=== PATIENT | male | born 1950 | race Caucasian/White ===

== ENCOUNTER 2022-07-31 14:53 | Emergency (ER) | payer MEDICARE, OTHER ==
[~2022-07-31] VITALS: Ht 172.7 cm; Wt 79.5 kg
[2022-07-31 14:58] VITALS: TEMP 97.8
[2022-07-31] MEDS ORDERED: DOCU-350 PO (15:09)
[2022-07-31] MEDS ORDERED: SENN-376 PO (15:09)
[2022-07-31] MEDS ORDERED: ROSU10TA72 PO (15:09)
[2022-07-31] MEDS ORDERED: BUME1TAB34 PO (15:09)
[2022-07-31] MEDS ORDERED: ASPI-1450 PO (15:09)
[2022-07-31] MEDS ORDERED: LOSA-382 PO (15:09)
[2022-07-31] MEDS ORDERED: FOLI0.8T53 PO (15:09)
[2022-07-31] MEDS ORDERED: SEVE0.8P6 PO (15:09)
[2022-07-31 16:38] VITALS: BP 128/62; PULSE 72; RESP 16
== END 2022-07-31 17:00 | disposition home or self-care (01) ==
LOC: EMS 14:56
DX: S09.90XA Unspecified injury of head, initial encounter (principal); E11.22 Type 2 diabetes mellitus with diabetic chronic kidney disease; I12.0 Hypertensive chronic kidney disease with stage 5 chronic kidney disease or end stage renal disease; N18.6 End stage renal disease; M48.00 Spinal stenosis, site unspecified; Z99.2 Dependence on renal dialysis; Z79.82 Long term (current) use of aspirin; W19.XXXA Unspecified fall, initial encounter; Y93.89 Activity, other specified; Y92.89 Other specified places as the place of occurrence of the external cause; Y99.8 Other external cause status
CPT/HCPCS: 70450; 99284

== ENCOUNTER 2022-09-27 15:01 | Emergency (ER) | payer MEDICARE, OTHER ==
[~2022-09-27] VITALS: Ht 177.8 cm; Wt 81.8 kg
[~2022-09-27 15:01] MED LIST: ASPI-1450 PO; BUME1TAB34 PO; DOCU-352 PO; FOLI0.8T53 PO; LOSA-382 PO; ROSU10TA72 PO; SENN-376 PO; SEVE0.8P6 PO
[2022-09-27 15:15] VITALS: TEMP 99
[2022-09-27] MEDS ORDERED: NPH,100V SQ (15:20)
[2022-09-27] MEDS ORDERED: LIDO1ADH72 TD (15:20)
[2022-09-27] MEDS ORDERED: PANTOPRAZOLE SODIUM 80 MG in SODIUM CHLORIDE 0.9% 100 ML IV SCH (15:45)
[2022-09-27] MEDS ORDERED: PANTOPRAZOLE SODIUM 40 MG/VIAL IVP ONE (15:45)
[2022-09-27 16:44] LABS: BASOPHILS % (AUTO) 0.3 % (0.0-2.0); EOSINOPHILS % (AUTO) 1.3 % (1.0-6.0); HEMATOCRIT 28.2 % (41-53); HEMOGLOBIN 9.5 g/dL (13.5-17.5); LYMPHOCYTES # (AUTO) 1.3 K/uL (1.0-4.8); LYMPHOCYTES % (AUTO) 14.5 % (22.0-44.0); MEAN CORPUSCULAR HEMOGLOBIN 34.2 pg (26.0-34.0); MEAN CORPUSCULAR HGB CONC 33.7 G/dL (31.0-37.0); MEAN CORPUSCULAR VOLUME 102 fL (80-100); MONOCYTES # (AUTO) 1.1 K/uL (0.1-1.0); NEUTROPHILS # (AUTO) 6.4 K/uL (1.8-7.7); NEUTROPHILS % (AUTO) 71.9 % (40.0-70.0); PLATELET COUNT (AUTO) 166 K/uL (150-450); RED BLOOD CELL COUNT(AUTO) 2.78 MIL/uL (4.50-5.90); RED CELL DISTRIBUTION WIDTH 15.5 % (11.5-14.5)
[2022-09-27 16:55] LABS: CALCIUM, TOTAL 9.1 mg/dL (8.8-10.5); CREATININE 8.89 mg/dL (0.60-1.30); POTASSIUM 4.4 mmol/L (3.5-5.1)
[2022-09-27 16:57] LABS: INR 1.1 (0.9-1.1)
[2022-09-27 17:00] LABS: ALBUMIN 3.1 g/dL (3.4-5.0); BILIRUBIN,TOTAL 0.4 mg/dL (0.1-1.0); TOTAL PROTEIN, SERUM 6.9 g/dL (6.4-8.2)
[2022-09-27 18:26] LABS: BILIRUBIN,URINE NEGATIVE (NEGATIVE); GLUCOSE, URINE (UA) 300-500 mg/dL (NEGATIVE); KETONES,URINE NEGATIVE (NEGATIVE); LEUKOCYTE ESTERASE ,URINE SMALL (NEGATIVE); NITRATE,URINE NEGATIVE (NEGATIVE); OCCULT BLOOD,URINE LARGE (NEGATIVE); PH,URINE 6.5 (5.0-8.0); PROTEIN,URINE 300-600,SEE CONFIRM mg/dL (NEGATIVE); SPECIFIC GRAVITIY, URINE 1.012 (1.003-1.030); UROBILINOGEN,URINE <=1.0 mg/dL (<=1.0)
[2022-09-27 18:29] LABS: APPEARANCE,URINE TURBID (CLEAR)
[2022-09-27 18:31] LABS: SULFOSALICYLIC ACID,URINE 4+ (Negative)
[2022-09-27 18:32] LABS: RBC,URINE >100 /HPF (0-2)
[2022-09-27 18:33] LABS: BACTERIA,URINE Moderate /HPF (None Seen); WBC,URINE 26-50 /HPF (0-5)
[2022-09-27 19:00] VITALS: BP 104/52; PULSE 71; RESP 16
[2022-09-27] MEDS ORDERED: CEPHALEXIN MONOHYDRATE 500 MG CAPSULE PO ONE (19:00)
[2022-09-27] MEDS ORDERED: CEPH-558 PO (19:04)
== END 2022-09-27 19:45 | disposition home or self-care (01) ==
LOC: EMS 15:01
DX: N39.0 Urinary tract infection, site not specified (principal); R31.9 Hematuria, unspecified; D64.9 Anemia, unspecified; E11.9 Type 2 diabetes mellitus without complications; I10 Essential (primary) hypertension; M48.00 Spinal stenosis, site unspecified; N18.6 End stage renal disease; Z99.2 Dependence on renal dialysis
CPT/HCPCS: 99284; 74176; 80053; 81001; 82271; 84484; 85025; 85610; 85730; 86850; 86900; 86901; 36415; 87086; 87186; 93005; 51701; C9113; J7050; 81002